=== PATIENT | male | born 1955 ===

== ENCOUNTER 2019-01-03 06:06 | Day surgery (SDC) | payer OTHER ==
[~2019-01-03 06:06] MED LIST: ADVAI IN; ASPIR 8181 MG PO; ATORVAST PO; ETO PO; GLIPIZIDE XL10 MG PO; GLUMETZA1000 MG PO; LANTUS
== END 2019-01-03 12:25 | disposition home or self-care (01) ==
LOC: CIR.AMB 06:06
DX: M75.112 Incomplete rotator cuff tear or rupture of left shoulder, not specified as traumatic (principal); M75.42 Impingement syndrome of left shoulder